=== PATIENT | male | born 1985 | race Caucasian/White ===

== ENCOUNTER 2020-07-05 17:00 | Outpatient (RCR) | payer OTHER, SELFPAY ==
[2020-06-05 14:56] VITALS: BP_SYST 156
--- NOTE | 2020-06-06 11:18 | PTOPEVAL ---
INITIAL PHYSICAL THERAPY EVALUATION and PLAN OF CARE Thank you for referring Russell Cuevas to [facility].? Russell is scheduled to be seen for physical therapy? 2x/week for 4 weeks. Please review, sign, date and return this plan of care ALLA. I agree with and certify that the following plan of care is medically necessary. Referring Physician Date Admitting Provider: Attending Provider: Robb Lanza MD Referring Provider: *PT Outpatient Evaluation Start: 06/05/20 14:56 Freq: Status: Active Protocol: Document 06/05/20 14:56 RO (Rec: 06/05/20 16:41 RO [id number]) Therapy Assessment Status Assessment Status Assessment Status Evaluation Outpatient Past Medical History Past Medical History Source of Past Medical History Patient Musculoskeletal History Hx Back Pain Yes Hx Orthopedic Surgery Yes: R knee Hx Other Musculoskeletal Disorders Yes: L shoulder trauma, neck pain Evaluation Information Problem Diagnosis L shoulder pain Onset 2007,2008 Cause trauma Subjective Information Playing flag football - dove Query Text:As Reported By Patient/ and rolled onto L shoulder. 8 Family -10 months later - reaching up holding onto boat - doing tactile training - felt a jolt not as bad as first time - had PT after both bouts. Slowly worsening - keeping him up at night Sleeping - will have shooting pain down arm, will have pain if lies on L arm incorrect Mornings - soreness, stiffness - better once starts to move around a little bit Sore after work. On occasions will use ice. Prior Level of Function Activity Level (Last 3 Months) Occupation mechanical work - pumps, piping - increase work with both UE's Hand Dominance Right Medications Home Meds (Include: OTC, RX, Vitamins, multivitamins; Advil, extra Herbals, Dose, Route,and Frequency) strength Tylenol, Zquil, Aleve Query Text:Home Med Entries Will No Longer Recall From Past Visits. Home Meds Must Be Re-entered With Each Visit. Comments Additional Prior Level of Function in - [employer] - Comments police, search and rescue recreation - camping, fishing,
[2020-07-05 17:10] VITALS: BP_SYST 160
--- NOTE | 2020-07-05 17:40 | PTOPEVAL ---
PHYSICAL THERAPY DISCHARGE NOTE Thank you for referring Russell Cuevas to [facility].? Please review, sign, date and return this plan of care ALLA. I agree with and certify that the following plan of care is medically necessary. Referring Physician Date Attending Provider: Robb Lanza MD Discharge Diagnosis L shoulder pain Onset 2007,2008 Cause trauma Subjective Information has participated in 6 visits Query Text:As Reported By Patient/ of physical therapy for left Family shoulder pain with traumatic injury history. Pain sypmtoms remain consistent with severe limitation in functional movement for work and ADL activities. Self Report Pain Assessment Left Shoulder(s) Reported Pain Level 3 Pain Description Aching,Shooting,Soreness, Tightness Pain Frequency Chronic Pain Aggravating Factors Changing Position,Exercise/ Activity Additional Pain Comments mulitple medication Pain Score Pain Score 3: Self Report Interventions Used Interventions Used By Clinicians Electrical Stimulation, Exercise,Manual Therapy Techniques Upper Extremity Range of Motion Scapular/ Shoulder Range of Motion Right Shoulder Flexion - Active 175 Shoulder Extension - Active 64 Shoulder Abduction - Active 162 Shoulder Medial Rotation - Active 72 Shoulder Medial Rotation - Active T9 Query Text:Reach Behind the Back Shoulder Lateral Rotation - Active 90 Shoulder Lateral Rotation - Active T3 Query Text:Reach Behind the Head Scapular/Shoulder Range of Motion ER in neutral 73 Comments Left Shoulder Flexion - Active 125 Shoulder Flexion - Passive 169 Shoulder Extension - Active 58 Shoulder Abduction - Active 95 Shoulder Abduction - Passive 160 Shoulder Medial Rotation - Active 80 Shoulder Medial Rotation - Active T10 Query Text:Reach Behind the Back Shoulder Lateral Rotation - Active 32 Shoulder Lateral Rotation - Active C7 Query Text:Reach Behind the Head Scapular/Shoulder Range of Motion Pain limiting full active Comments motion - with AA/passive can achieve increase range Upper Extremity Muscle Strength Testing Scapular/Shoulder Right Shoulder Flexion Strength 5 Normal Shoulder Extension Strength 5 Normal Shoulder Abduction Strength 5 Normal Shoulder Medial Rotation Strength 5 Normal Shoulder Lateral Rotation Strength 5
== END 2020-07-06 11:21 | disposition home or self-care (01) ==
LOC: ANHPT 17:00
PROVIDERS: PCP Internal Medicine; Visit Provider Orthopaedic Surgery
DX: M25.512 Pain in left shoulder (principal)
CPT/HCPCS: 97014; 97110; 97140; 97162; G0283

== ENCOUNTER 2020-07-26 14:12 | Outpatient (RCR) | payer OTHER, SELFPAY ==
--- NOTE | 2020-07-26 15:38 | OTOPEVAL ---
OCCUPATIONAL THERAPY EVALUATION REPORT AND DISCHARGE SUMMARY 07/26/20 Patient presents with a decline in functional use of the left hand after getting it caught in a machine at work. He presents with signs and symptoms of a lumbrical strain of the left middle finger. All structures appear intact and he appears to have done quite a bit of healing since the initial injury ~10 days ago. Educated patient on performing active ROM to help promote improved flexibility as well as use of ice for reduced pain. Patient understands all instructed materials. No further skilled OT is indicated at this time. Thank you for referring Russell Cuevas to [facility]. Patient is being discharged with HEP. Please review, sign, date and return this discharge plan ALLA. I agree with and certify that the following plan of care is medically necessary. Referring Physician Date Admitting Provider: Attending Provider: Tex De Luna, Referring Provider: *OT Outpatient Evaluation Start: 07/26/20 14:53 Therapy Assessment Status Assessment Status Assessment Status Evaluation Outpatient Past Medical History Musculoskeletal History Hx Back Pain Yes Hx Orthopedic Surgery Yes: R knee Hx Other Musculoskeletal Disorders Yes: L shoulder trauma, neck pain Evaluation Information Problem Diagnosis left hand contusion and decreased ROM Subjective Information Patient states that his hand Query Text:As Reported By Patient/ got caught and twisted in a Family machine at work. He states it was initially very swollen and painful. He states that he has been taking anti- inflammatories x8 days and this has helped with the pain tremendously. He states his ROM has improved but he still has some residual pain in the middle finger. Diagnostic Tests X-Rays For This Problem Yes: x-rays were negative Pain Assessment Timing of Pain Assessment Timing of Pain Assessment Assessment Pain Scale Pain Scale Used Numeric (1 - 10) Self Report Pain Assessment Left Hand(s) Reported Pain Level 0 Pain Description Aching,Sharp Lowest Pain Intensity 0 Greatest Pain Intensity 7 Pain Score Pain Score 0: Self Report Upper Extremity Range of Motion Finger Range of Motion Left Finger Range of Motion Comments -Active flexion and extension off all fingers has returned to normal limits. Patient is able to make a full fist and hook fist. Finger abduction and adduction is intact.
== END 2020-10-06 10:20 | disposition home or self-care (01) ==
LOC: ANHHIOT 14:12
PROVIDERS: PCP Internal Medicine; Visit Provider Internal Medicine
DX: S60.222D Contusion of left hand, subsequent encounter (principal)
CPT/HCPCS: 97110; 97165

== ENCOUNTER 2020-07-27 12:52 | Outpatient (CLI) | payer OTHER, SELFPAY ==
--- NOTE | ~2020-07-27 | MR_ITS ---
EXAMINATION: MR shoulder LT wo con DATE: 07/27/2020 13:42 INDICATION: Left shoulder pain. TECHNIQUE: Magnetic resonance imaging (MRI) of the left shoulder was performed without intravenous co ntrast. Sequences included axial PD-weighted FS FSE, coronal oblique PD-weighted FS FSE and T2-weight ed FS FSE, and sagittal oblique T2-weighted FS FSE and T1-weighted FSE. COMPARISON: None. FINDINGS: Coracoacromial arch: The acromion undersurface is curved in morphology (type II). There is moderate acromioclavicular join t osteoarthritis. There is mild subacromial/subdeltoid bursitis. Rotator cuff: There is mild supraspinatus and infraspinatus tendinopathy. There is an interstitial tear of the conj oined portion of the tendon at its distal insertion measuring 7 mm anterior to posterior by 3 mm prox imal to distal by 20% tendon thickness. Teres minor tendon is normal. Subscapularis tendon is normal. There is no asymmetric fatty atrophy of the rotator cuff muscle bellies. Biceps tendon and glenoid labrum: Biceps tendon is in bicipital groove. Intra-articular biceps tendon is normal. The labrum is intact. Fluid: There is no glenohumeral joint effusion. Bones/cartilage: The glenoid cartilage is normal. The humeral head cartilage is normal. IMPRESSION: 1. Small interstitial tear of the rotator cuff. 2. Moderate acromioclavicular joint osteoarthritis. 3. Mild subacromial/subdeltoid bursitis. Reviewed, dictated and finalized at location A. [facility] [employer]
== END 2020-07-27 12:53 | disposition home or self-care (01) ==
PROVIDERS: PCP Internal Medicine; Visit Provider Orthopaedic Surgery
DX: M75.102 Unspecified rotator cuff tear or rupture of left shoulder, not specified as traumatic (principal); M75.52 Bursitis of left shoulder; M19.011 Primary osteoarthritis, right shoulder
CPT/HCPCS: 73221

== ENCOUNTER 2020-10-12 11:39 | Outpatient (RCR) | payer OTHER, SELFPAY ==
--- NOTE | 2020-10-12 14:02 | OTOPEVAL ---
OCCUPATIONAL THERAPY EVALUATION REPORT 10/12/20 Russell presents back to hand therapy due to continued hand pain in the left middle finger following an injury at work in which his hand was caught, smashed, and twisted in a machine. Initially the patient was reporting minimal pain and was issued ROM HEP. At this time, his pain is more constant and worse than it was 2 months ago. Today it was recommended that the patient diligently tries to rest the lumbrical muscle by not picking up objects with an intrinsic plus hand position and also complies with regular ariana taping to rest the muscle and tendon. Plan to have the patient follow up in 2 weeks to reassess the efficacy of this intervention. In the meantime, it would be recommended that the patient had MRI to evaluate severity of the soft tissue injury. Thank you for referring Russell Cuevas to [facility].? The patient is scheduled to be seen for a therapy reassessment in 2 weeks. Please review, sign, date and return this plan of care ALLA. I agree with and certify that the following plan of care is medically necessary. Referring Physician Date Referring Provider: Tex De Luna, *OT Outpatient Evaluation Start: 10/12/20 13:03 Therapy Assessment Status Assessment Status Assessment Status Evaluation Outpatient Past Medical History Past Medical History Source of Past Medical History Recalled from Previous Visit, Confirmed with Patient/Family Neurological History Hx Neurological Disorders No Significant History Cardiovascular History Hx Cardiac Disorders No Significant History Respiratory History Hx Respiratory Disorders No Significant History Gastrointestinal History Hx Gastrointestinal Disorders No Significant History Genitourinary History Hx Genitourinary Disorders No Significant History Musculoskeletal History Hx Back Pain Yes Hx Orthopedic Surgery Yes: R knee Hx Other Musculoskeletal Disorders Yes: L shoulder trauma, neck pain, left RTC partial tear, bursitis Hematological History Hx Hematological Disorders No Significant History Endocrine History Hx Endocrine Disorders No Significant History HEENT History Hx HEENT Disorders No Significant History Integumentary History Hx Skin Disorders No Significant History Reproductive History Hx Reproductive Disorders No Significant History Evaluation Information Problem Diagnosis Left hand crush injury Onset Jul 16, 2020 Additional Evaluation Detail Russell was evaluated at this clinic 07/26/20 for this same hand pain. Symptoms were consistent with lumbrical strain and he was issued ROM exercises and ice was recommended. Today he presents with the same pain and it has not subsided and findings
--- NOTE | 2020-10-26 10:08 | PCOTNOTE ---
Patient called & cancelled scheduled appointment this date due to a family emergency. Will contact the patient at a later date to reschedule the re-evaluation.
--- NOTE | 2021-01-18 16:17 | PCOTNOTE ---
OCCUPATIONAL THERAPY DISCHARGE NOTIFICATION 01/18/2021 Patient:Russell Cuevas Date of :1985 Patient has not returned for any further treatments since his initial evaluation on 10/12/2020, therefore he will be discharged at this time. Please refer to that evaluation report for therapy assessment and recommendations. The goals have not been able to be addressed. [facility]. Please review, sign, date and return this discharge summary ALLA. I have been updated about the patient's current status and I agree with discharge from the above service at this time. Referring Physician Date Attending Provider: Tex De LunaMD
== END 2020-12-27 14:41 | disposition home or self-care (01) ==
LOC: ANHHIOT 11:39
PROVIDERS: PCP Internal Medicine; Visit Provider Internal Medicine
DX: S67.22XD Crushing injury of left hand, subsequent encounter (principal)
CPT/HCPCS: 97166

== ENCOUNTER 2021-10-03 06:35 | Outpatient (CLI) | payer OTHER, SELFPAY ==
--- NOTE | ~2021-10-03 | MR_ITS ---
EXAMINATION: MR shoulder LT wo con DATE: 10/03/2021 07:47 INDICATION: Left shoulder pain. TECHNIQUE: Magnetic resonance imaging (MRI) of the left shoulder was performed without intravenous co ntrast. Sequences included axial PD-weighted FS FSE, coronal oblique PD-weighted FS FSE and T2-weight ed FS FSE, and sagittal oblique T2-weighted FS FSE and T1-weighted FSE. COMPARISON: Left shoulder MRI 07/27/2020 FINDINGS: Coracoacromial arch: The acromion undersurface is curved in morphology (type II). There is moderate acromioclavicular join t osteoarthritis. There is mild subacromial/subdeltoid bursitis. Rotator cuff: There is moderate supraspinatus and infraspinatus tendinopathy. There is an interstitial tear of the conjoined portion of the tendon at its distal insertion measuring 8 mm anterior to posterior by 3 mm proximal to distal by 20% tendon thickness. Teres minor tendon is normal. Subscapularis tendon is nor mal. There is no asymmetric fatty atrophy of the rotator cuff muscle bellies. Biceps tendon and glenoid labrum: Biceps tendon is in bicipital groove. Intra-articular biceps tendon is normal. There are paralabral c ysts at 8:00 and 9:00 measuring up to 6 x 2 x 4 mm. No well defined labral tear. Fluid: There is no glenohumeral joint effusion. Bones/cartilage: Glenoid cartilage is normal. Humeral cartilage is normal. IMPRESSION: 1. Stable small interstitial tear of the rotator cuff. 2. Moderate acromioclavicular joint osteoarthritis. 3. Small posterior and posteroinferior paralabral cysts. No well defined labral tear identified. 4. Mild subacromial/subdeltoid bursitis. Reviewed, dictated and finalized at location A.
== END 2021-10-03 06:36 | disposition home or self-care (01) ==
PROVIDERS: PCP Internal Medicine; Visit Provider Orthopaedic Surgery
DX: M25.512 Pain in left shoulder (principal); M75.102 Unspecified rotator cuff tear or rupture of left shoulder, not specified as traumatic; M19.012 Primary osteoarthritis, left shoulder; S43.432A Superior glenoid labrum lesion of left shoulder, initial encounter; M75.52 Bursitis of left shoulder
CPT/HCPCS: 73221